=== PATIENT | female | born 1965 | race Caucasian/White ===

== ENCOUNTER 2017-01-08 08:25 | Day surgery (SDC) | payer OTHER ==
[~2017-01-08] VITALS: Ht 165.1 cm; Wt 93.4 kg
[~2017-01-08 08:25] MED LIST: FISH OIL 1,0001 EA10 PO; MAGNESIUM400 M1 PO; ONE DAILY WOME1 EACH PO; PROGESTERONE100 MG PO
[2017-01-08 09:32] VITALS: BP 136/82
[2017-01-08] MEDS ORDERED: MEGACE40 MG PO (11:24)
[2017-01-08] MEDS ORDERED: MOTRIN800 MG PO (11:24)
[2017-01-08] MEDS ORDERED: TYLENOL WITH C1 EACH PO (11:24)
[2017-01-08 12:30] VITALS: BP 157/84
[2017-01-08 13:54] VITALS: BP 147/79
== END 2017-01-08 14:05 | disposition home or self-care (01) ==
LOC: SDC 08:25
DX: N80.0 Endometriosis of uterus (principal); N92.1 Excessive and frequent menstruation with irregular cycle; Z87.891 Personal history of nicotine dependence; Z88.2 Allergy status to sulfonamides
CPT/HCPCS: 88305; J0131; J1100; J1170; J1885; J2250; J2405; J3010

== ENCOUNTER → 2017-02-26 | Outpatient (CLI) | payer OTHER ==
[~2017-02-26] MED LIST changes: -FISH OIL 1,0001 EA10 PO; +FISH OIL 500 M1 EAC2 PO; +MEGACE40 MG PO; +MOTRIN800 MG PO; +TYLENOL EXTRA500 MG PO; +TYLENOL WITH C1 EACH PO
== END | disposition home or self-care (01) ==
LOC: CDC 08:30
DX: Z01.810 Encounter for preprocedural cardiovascular examination (principal); R00.0 Tachycardia, unspecified
CPT/HCPCS: 93000

== ENCOUNTER 2017-03-02 05:33 | Day surgery (SDC) | payer OTHER ==
[~2017-03-02] VITALS: Ht 165.1 cm; Wt 95.7 kg
[2017-03-02 06:22] VITALS: BP 159/96
[2017-03-02 13:30] VITALS: BP 140/78
[2017-03-02 15:12] LABS: HEMATOCRIT 37.5 % (36.0-46.0); MCV 83.9 FL (83-99)
[2017-03-02 16:10] VITALS: BP 136/77
[2017-03-02 20:02] VITALS: BP 146/80
[2017-03-03 00:38] VITALS: BP 162/82
[2017-03-03 04:06] VITALS: BP 156/78
[2017-03-03 07:07] LABS: HEMATOCRIT 35.3 % (36.0-46.0); MCH 28.1 PG (29.0-34.0); MCHC 32.9 G/DL (30.0-36.0); MCV 85.5 FL (83-99); MEAN PLAT.VOLUME 10.3 uM^3 (9.5-12.4); PLATELET COUNT 323 K/uL (156-360); RBC DIS.WIDTH-CV 13.2 % (11.8-14.6); RBC DIS.WIDTH-SD 41.1 % (39-53); RED BLOOD COUNT 4.13 M/uL (3.80-5.20)
[2017-03-03 07:10] VITALS: BP 145/75
[2017-03-03 07:35] LABS: ANION GAP 6 MEQ/L (2-14); CHLORIDE 104 MEQ/L (99-109); GFR ESTIMATE (CALCULATED) > 59 mL/min/; GLUCOSE 100 mg/dL (70-99); POTASSIUM 4.9 MEQ/L (3.7-5.4); SAMPLE HEMOLYSIS CHECK 0; SAMPLE ICTERIC CHECK 0; SAMPLE LIPEMIA CHECK 0; SODIUM 138 MEQ/L (136-147); UREA NITROGEN (BUN) 5 mg/dL (9-23)
[2017-03-03] MEDS ORDERED: ACETAMINOPHEN-1 EAC1 PO (08:26)
[2017-03-03] MEDS ORDERED: MOTRIN800 MG PO (08:26)
[2017-03-03 12:10] VITALS: BP 132/73
== END 2017-03-03 13:38 | disposition home or self-care (01) ==
LOC: SDC 05:33 → ENRESERV 10:42 → 2SOUTH 10:43 → 2EAST 10:43 → ENRESERV 11:36 → 2EAST 13:07 → SDC 14:10 → 2EAST 03-03 13:38
PROVIDERS: Obstetrics & Gynecology
DX: N80.0 Endometriosis of uterus (principal); N83.8 Other noninflammatory disorders of ovary, fallopian tube and broad ligament; N92.1 Excessive and frequent menstruation with irregular cycle; N73.6 Female pelvic peritoneal adhesions (postinfective); K66.0 Peritoneal adhesions (postprocedural) (postinfection); E66.9 Obesity, unspecified; Z68.35 Body mass index [BMI] 35.0-35.9, adult; Z87.891 Personal history of nicotine dependence; Z88.5 Allergy status to narcotic agent; Z88.2 Allergy status to sulfonamides
CPT/HCPCS: 80048; 85014; 85018; 85027; 87086; 88307; G0378; J0131; J1100; J1170; J1200; J1885; J2250; J2270; J2405; J2710; J3010; J7120; Q0175; S0020